=== PATIENT | female | born 1975 | race Caucasian/White ===

== ENCOUNTER 2017-06-22 02:51 | Emergency (ER) | payer OTHER ==
[~2017-06-22] VITALS: Ht 170.2 cm; Wt 87.1 kg
[~2017-06-22 02:51] MED LIST: NOHOMEMEDS; TRAMADOL HCL50 MG PO
[2017-06-22 04:06] LABS: EOSINOPHIL (%) 1.7 % (0-5); EOSINOPHIL COUNT 0.1 K/uL (0-0.3); IMMATURE GRANULOCYTE (%) 0.1 % (0.0-0.7); INSTRUMENT ABS NEUTROPHIL CT 5.6 K/uL; LYMPHOCYTE COUNT 1.2 K/uL (1.0-2.8); MCH 29.4 PG (29.0-34.0); MCHC 32.8 G/DL (30.0-36.0); MCV 89.9 FL (83-99); MEAN PLAT.VOLUME 9.2 uM^3 (9.5-12.4); MONOCYTE (%) 4.7 % (3-12); MONOCYTE COUNT 0.3 K/uL (0-0.8); NEUTROPHIL (%) 76.8 % (45-76); NEUTROPHIL COUNT 5.6 K/uL (1.8-6.4); PLATELET COUNT 217 K/uL (156-360); RBC DIS.WIDTH-CV 13.2 % (11.8-14.6); RBC DIS.WIDTH-SD 43.5 % (39-53); RED BLOOD COUNT 4.45 M/uL (3.80-5.20); WHITE BLOOD COUNT 7.3 K/uL (4.1-10.2)
[2017-06-22 04:17] LABS: CHLORIDE 108 mEq/L (99-109); POTASSIUM 4.2 mEq/L (3.7-5.4); SODIUM 138 mEq/L (136-147)
[2017-06-22 04:18] LABS: GLUCOSE 108 mg/dL (70-99)
[2017-06-22 04:20] LABS: ANION GAP 7 MEQ/L (2-14)
[2017-06-22 04:21] LABS: ADD MIUA? YES; BILIRUBIN NEGATIVE; BLOOD NEGATIVE; COLOR YELLOW ((YELLOW)); GLUCOSE (STRIP) NEGATIVE; KETONES NEGATIVE; LEUKOCYTES NEGATIVE; NITRITE NEGATIVE; PROTEIN (STRIP) NEGATIVE; SPECIFIC GRAVITY 1.012 (1.000-1.030); UROBILINOGEN 0.2 MG/DL (0.2-1.0)
[2017-06-22 04:22] LABS: GFR ESTIMATE (CALCULATED) > 59 mL/min/
[2017-06-22 04:23] LABS: UREA NITROGEN (BUN) 12 mg/dL (9-23)
[2017-06-22 04:25] LABS: CREATINE KINASE 65 IU/L (1-294)
[2017-06-22 04:35] LABS: AMPHETAMINE NEGATIVE (500 ng/mL); BARBITURATES NEGATIVE (200 ng/mL); BENZODIAZEPINES NEGATIVE (150 ng/mL); COCAINE NEGATIVE (150 ng/mL); INTERNAL CONTROLS VALID? YES; METHADONE NEGATIVE (200 ng/mL); METHAMPHETAMINE NEGATIVE (500 ng/mL); OPIATES (MORPHINE) NEGATIVE (100 ng/mL); OXYCODONE PRESUMPTIVE POSITIVE (100 ng/mL); PHENCYCLIDINE NEGATIVE (25 ng/mL); PROPOXYPHENE NEGATIVE (300 ng/mL); THC CANNABINOIDS NEGATIVE (50 ng/mL); TRICYCLIC ANTIDEPRESSANTS NEGATIVE (300 ng/mL)
[2017-06-22 04:38] LABS: BACTERIA RARE /HPF; EPITHELIAL CELLS 1+ /HPF; MUCUS NONE SEEN /LPF; RED BLOOD CELLS 0-5 /HPF (0-5); UCUL ADDED? NO; WHITE BLOOD CELLS 0-5 /HPF (0-5)
[2017-06-22 05:49] VITALS: BP 119/77
[2017-06-22] MEDS ORDERED: KEPPRA500 MG PO (21:37)
== END 2017-06-22 05:56 | disposition home or self-care (01) ==
LOC: EME → EDBD 02:51 → EME 02:51
PROVIDERS: Emergency Medicine
DX: G40.909 Epilepsy, unspecified, not intractable, without status epilepticus (principal); S00.512A Abrasion of oral cavity, initial encounter; X58.XXXA Exposure to other specified factors, initial encounter; Y92.003 Bedroom of unspecified non-institutional (private) residence as the place of occurrence of the external cause; F17.200 Nicotine dependence, unspecified, uncomplicated
CPT/HCPCS: 70450; 80048; 81003; 82550; 85025; 99281; 99284

== ENCOUNTER 2017-06-22 16:22 | Emergency (ER) | payer OTHER ==
[~2017-06-22] VITALS: Ht 170.2 cm; Wt 80.5 kg
[2017-06-22 17:56] LABS: EOSINOPHIL (%) 0.4 % (0-5); HEMATOCRIT 32.9 % (36.0-46.0); IMMATURE GRANULOCYTE (%) 0.3 % (0.0-0.7); INSTRUMENT ABS NEUTROPHIL CT 6.1 K/uL; LYMPHOCYTE COUNT 0.8 K/uL (1.0-2.8); MCHC 32.5 G/DL (30.0-36.0); MCV 92.2 FL (83-99); MEAN PLAT.VOLUME 9.2 uM^3 (9.5-12.4); MONOCYTE (%) 3.6 % (3-12); MONOCYTE COUNT 0.3 K/uL (0-0.8); NEUTROPHIL (%) 84.6 % (45-76); NEUTROPHIL COUNT 6.1 K/uL (1.8-6.4); PLATELET COUNT 163 K/uL (156-360); RBC DIS.WIDTH-SD 44.4 % (39-53); RED BLOOD COUNT 3.57 M/uL (3.80-5.20); WHITE BLOOD COUNT 7.2 K/uL (4.1-10.2)
[2017-06-22 18:01] LABS: SODIUM 143 mEq/L (136-147)
[2017-06-22 18:06] LABS: TOTAL BILIRUBIN 0.9 mg/dL (0.0-1.0)
[2017-06-22 18:07] LABS: ALKALINE PHOSPHATASE 38 IU/L (3-129); SERUM ETHYL ALCOHOL < 10 mg/dL
[2017-06-22 18:08] LABS: CHLORIDE 121 mEq/L (99-109); GFR ESTIMATE (CALCULATED) > 59 mL/min/; GLUCOSE 71 mg/dL (70-99); POTASSIUM 2.6 mEq/L (3.7-5.4)
[2017-06-22 18:09] LABS: UREA NITROGEN (BUN) 7 mg/dL (9-23)
[2017-06-22 19:08] LABS: CHLORIDE 111 mEq/L (99-109); SODIUM 141 mEq/L (136-147)
[2017-06-22 19:11] LABS: ANION GAP 10 MEQ/L (2-14)
[2017-06-22 19:13] LABS: ALKALINE PHOSPHATASE 53 IU/L (3-129)
[2017-06-22 19:14] LABS: GFR ESTIMATE (CALCULATED) > 59 mL/min/
[2017-06-22 19:15] LABS: UREA NITROGEN (BUN) 10 mg/dL (9-23)
[2017-06-22 19:18] LABS: GLUCOSE 96 mg/dL (70-99); POTASSIUM 4.1 mEq/L (3.7-5.4); TOTAL BILIRUBIN 1.3 mg/dL (0.0-1.0)
[2017-06-22] MEDS ORDERED: KEPPRA500 MG PO (21:37)
[2017-06-22 21:45] VITALS: BP 115/67
== END 2017-06-22 22:29 | disposition home or self-care (01) ==
LOC: EME 16:22
PROVIDERS: Emergency Medicine
DX: R56.9 Unspecified convulsions (principal); F17.200 Nicotine dependence, unspecified, uncomplicated
CPT/HCPCS: 80053; 85025 91; 99281; 99284; G0480; J1953; J2060; J2765; J7030; J7050